=== PATIENT | female | born 2000 | race Two or more races ===

== ENCOUNTER → 2021-10-31 14:32 | Emergency (ER) | payer SELFPAY ==
[~2021-10-31] VITALS: Ht 157.5 cm; Wt 72.6 kg
[~2021-10-31 14:32] MED LIST: LORazepam 0.5 MG TAB PO ONE
[2021-10-31 14:45] VITALS: BP 151/79
[2021-10-31 16:01] LABS: Basophils # (auto) 0 10 ^3/uL (0-0.2); Basophils % (auto) 0.4 % (0.0-2.0); Eosinophils # (auto) 0 10 ^3/uL (0-0.8); Eosinophils % (auto) 0.1 % (0.0-7.0); Hematocrit 36.5 % (36.0-46.0); Hemoglobin 12.4 g/dL (12.2-16.2); Lymphocytes # (auto) 1.4 10 ^3/uL (0.4-5.4); Lymphocytes % (auto) 13.3 % (10.0-50.0); Mean Corpuscular Hemoglobin 28.1 pg (28.0-32.0); Mean Corpuscular Hgb Conc. 34.1 g/dL (32.0-36.0); Mean Corpuscular Volume 82.4 fL (80.0-100.0); Monocytes # (auto) 0.5 10 ^3/uL (0-1.3); Monocytes % (auto) 4.2 % (0.0-12.0); Neutrophils # (auto) 8.9 10 ^3/uL (1.6-8.6); Red Blood Cells 4.43 10^6/uL (4.0-5.20); Red Cell Distribution Width 14.4 % (11.8-14.3); White Blood Cell 10.8 10^3/uL (4.4-10.8)
[2021-10-31 16:31] LABS: Albumin 3.8 g/dL (3.4-5.0); BUN/Creatinine Ratio 14.1; Magnesium 2.4 mg/dL (1.6-2.6); Potassium 3.7 mmol/L (3.5-5.1)
[2021-10-31 16:34] LABS: Bilirubin, Total 0.3 mg/dL (0.2-1.0); Total Protein 7.9 g/dL (6.4-8.2)
== END | disposition left against medical advice (07) ==
LOC: ER 14:32 → EDBD 14:32 → ER 19:00
DX: R07.89 Other chest pain (principal); F41.9 Anxiety disorder, unspecified
CPT/HCPCS: 36415; 71046; 80053; 81025; 83735; 83880; 84484; 85025; 93005

== ENCOUNTER 2022-04-21 18:43 | Emergency (ER) | payer OTHER ==
[~2022-04-21] VITALS: Ht 157.5 cm; Wt 68.5 kg
[2022-04-21] MEDS ORDERED: predniSONE 5 MG TAB PO ONE (21:00)
[2022-04-21 22:22] VITALS: BP 144/78
== END 2022-04-21 22:30 | disposition home or self-care (01) ==
LOC: ER 18:43
DX: J40 Bronchitis, not specified as acute or chronic (principal); F41.9 Anxiety disorder, unspecified
CPT/HCPCS: 70360; 99283; J7512

== ENCOUNTER 2022-10-15 21:16 | Emergency (ER) | payer OTHER ==
[~2022-10-15] VITALS: Ht 157.5 cm; Wt 74.9 kg
[2022-10-15] MEDS ORDERED: IBUPROFEN 800 MG TAB PO ONE (21:45)
[2022-10-15 23:48] LABS: Urine Bacteria MANY /hpf (None Seen); Urine Blood Negative /uL (Negative); Urine Specific Gravity 1.006 (1.001-1.035); Urine WBC 4 /hpf (0 - 5)
[2022-10-16] MEDS ORDERED: IBUP800T26 PO (00:05)
[2022-10-16 00:21] VITALS: BP 118/75
== END 2022-10-16 00:22 | disposition home or self-care (01) ==
LOC: ER 21:16
DX: M54.59 Other low back pain (principal); F41.9 Anxiety disorder, unspecified
CPT/HCPCS: 81001; 81025

== ENCOUNTER 2022-10-18 19:44 | Emergency (ER) | payer OTHER ==
[~2022-10-18] VITALS: Ht 157.5 cm; Wt 76.3 kg
[~2022-10-18 19:44] MED LIST changes: +IBUP800T26 PO; -LORazepam 0.5 MG TAB PO ONE
[2022-10-18 19:50] VITALS: BP 119/75
== END 2022-10-19 01:04 | disposition left against medical advice (07) ==
LOC: ER 19:44
DX: S60.460A Insect bite (nonvenomous) of right index finger, initial encounter (principal); S90.862A Insect bite (nonvenomous), left foot, initial encounter; Z53.21 Procedure and treatment not carried out due to patient leaving prior to being seen by health care provider; W57.XXXA Bitten or stung by nonvenomous insect and other nonvenomous arthropods, initial encounter; Y93.89 Activity, other specified; Y92.89 Other specified places as the place of occurrence of the external cause; Y99.8 Other external cause status

== ENCOUNTER 2022-12-09 17:04 | Emergency (ER) | payer OTHER ==
[~2022-12-09] VITALS: Ht 157.5 cm; Wt 77.2 kg
[~2022-12-09 17:04] MED LIST changes: +IBUP-1455 PO; -IBUP800T26 PO
[2022-12-09 17:59] VITALS: BP 118/78
[2022-12-09 18:00] LABS: Urine Bacteria FEW /hpf (None Seen); Urine Blood Negative /uL (Negative); Urine Specific Gravity 1.007 (1.001-1.035); Urine WBC <1 /hpf (0 - 5)
[2022-12-09] MEDS ORDERED: BACDST PO (18:10)
== END 2022-12-09 18:43 | disposition home or self-care (01) ==
LOC: ER 17:04
DX: N39.0 Urinary tract infection, site not specified (principal); Z32.02 Encounter for pregnancy test, result negative; Z88.2 Allergy status to sulfonamides
CPT/HCPCS: 81001; 81025

== ENCOUNTER 2023-04-14 20:20 | Emergency (ER) | payer OTHER ==
[~2023-04-14] VITALS: Ht 157.5 cm; Wt 83.0 kg
[~2023-04-14 20:20] MED LIST changes: +BACDST PO
[2023-04-14 21:55] VITALS: BP 116/77
[2023-04-14 21:56] VITALS: PULSE 83; RESP 18; O2SAT 98
[2023-04-14 23:12] LABS: Urine Bacteria NONE SEEN /hpf (None Seen); Urine Blood Negative /uL (Negative); Urine Clarity Clear (Clear); Urine Color Yellow (Yellow); Urine Mucus FEW (None Seen); Urine Protein, UAD Negative (Negative); Urine Specific Gravity 1.032 (1.001-1.035); Urine Urobilinogen Normal (Negative); Urine WBC 1 /hpf (0 - 5); Urine pH 5.5 (5.0-8.0)
== END 2023-04-15 01:46 | disposition home or self-care (01) ==
LOC: ER 20:20
DX: S39.012A Strain of muscle, fascia and tendon of lower back, initial encounter (principal); F41.9 Anxiety disorder, unspecified; Z79.1 Long term (current) use of non-steroidal anti-inflammatories (NSAID); Z79.899 Other long term (current) drug therapy; X50.9XXA Other and unspecified overexertion or strenuous movements or postures, initial encounter; Y93.89 Activity, other specified; Y92.89 Other specified places as the place of occurrence of the external cause; Y99.8 Other external cause status
CPT/HCPCS: 72100; 81001; 81025